=== PATIENT | male | born 1995 | race Caucasian/White ===

== ENCOUNTER 2017-07-03 18:01 | Emergency (ER) | payer OTHER ==
[~2017-07-03] VITALS: Ht 180.3 cm; Wt 91.1 kg
[2017-07-03 18:12] VITALS: TEMP 37.1; O2SAT 96; Ht 180.3 cm; Wt 91.1 kg
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
[2017-07-03 20:03] VITALS: BP 138/69; PULSE 88; O2SAT 97
[2017-07-03 20:09] LABS: CALCIUM 8.8 mg/dl (8.5-10.1); CREATININE 0.99 mg/dl (0.60-1.40); POTASSIUM 3.7 mmol/L (3.5-5.1)
== END 2017-07-03 20:02 | disposition home or self-care (01) ==
LOC: EDBD 18:01 → C.EDC 18:02
DX: F10.920 Alcohol use, unspecified with intoxication, uncomplicated (principal); Y90.8 Blood alcohol level of 240 mg/100 ml or more; S50.812A Abrasion of left forearm, initial encounter; X58.XXXA Exposure to other specified factors, initial encounter